=== PATIENT | female | born 1995 | race Caucasian/White ===

== ENCOUNTER 2017-01-10 11:33 | Inpatient (IN) | payer MEDICAID, OTHER ==
[~2017-01-10] VITALS: Ht 160 cm; Wt 87.8 kg
[2017-01-10] MEDS ORDERED: SODIUM CHLORIDE 0.9% 1,000 ML IV ONE (12:07)
[2017-01-10 12:40] LABS: BASOPHILS % 0.6 % (0.0-2.0); DIFFERENTIAL COMMENT 0; EOSINOPHILS % 1.1 % (0.0-5.0); HEMATOCRIT. 38.9 % (36.0-48.0); LYMPHOCYTES % 21.8 % (20.0-50.0); MEAN CORPUSCULAR HEMOGLOBIN 25.8 pg (28.0-32.0); MEAN CORPUSCULAR HGB CONC 33.5 g/dL (31.0-37.0); MEAN CORPUSCULAR VOLUME 76.9 fL (81.0-99.0); MEAN PLATELET VOLUME 8.3 fl (7.4-10.4); NEUTROPHILS % 71.5 % (40.0-76.0); PLATELET 398 x1000/uL (130-400); RED BLOOD CELL COUNT 5.06 mill/uL (4.2-5.4); RED CELL DISTRIBUTION WIDTH 14.2 % (11.6-14.6); WHITE BLOOD COUNT 14.9 x1000/uL (4.5-11.0)
[2017-01-10 12:49] LABS: INR 1.1; PARTIAL THROMBOPLASTIN TIME 26.4 sec (24.0-34.0)
[2017-01-10 12:55] LABS: ANION GAP 11; CALCIUM 9.1 mg/dL (8.5-10.1); CARBON DIOXIDE 25 mEq/L (21-32); CHLORIDE 107 mEq/L (98-107); CREATINE KINASE 96 IU/L (26-192); INDEX HEMOLYSI 1 (1-3); INDEX ICTERIC 1 (1-4); INDEX LIPEMIC 1 (1-3); UREA NITROGEN BLOOD 13 mg/dL (7-21); eGFR > 60 mL/min (>60)
[2017-01-10 13:17] LABS: HCG SCREEN NEGATIVE
[2017-01-10 13:41] LABS: CLARITY URINE CLEAR (CLEAR); COLOR URINE YELLOW (YELLOW); GLUCOSE URINE NEGATIVE (NEGATIVE); KETONES URINE NEGATIVE (NEGATIVE); LEUKOCYTE ESTERASE URINE TRACE (NEGATIVE); NITRITE URINE NEGATIVE (NEGATIVE); OCCULT BLOOD URINE NEGATIVE (NEGATIVE); PH URINE 7.5 (4.5-8.0); PROTEIN URINE NEGATIVE (NEGATIVE); SPECIFIC GRAVITY URINE 1.009 (1.005-1.030); UROBILINOGEN URINE 0.2 E.U./dL (0.2-1.0)
[2017-01-10 14:13] LABS: SQUAMOUS EPITHELIAL CELL URINE 1+ /lpf (RARE/1+)
[2017-01-10 14:17] LABS: RBC URINE 0-2 /hpf (0-2); WBC URINE 0-2 /hpf (0-2)
[2017-01-10 14:18] LABS: BACTERIA URINE TRACE; YEAST URINE 1+
[2017-01-10 21:25] VITALS: BP 129/89
[2017-01-10 22:00] VITALS: BP 129/89
[2017-01-10] MEDS ORDERED: TOPI50TA PO (22:11)
[2017-01-10] MEDS ORDERED: ALPR0.2582 PO (22:11)
[2017-01-10] MEDS: LEVETIRACETAM 500MG TABLET PO SCH (22:48)
[2017-01-10 22:58] LABS: *AMPHETAMINES SCREEN URINE NEGATIVE (NEGATIVE); *BARBITURATES SCREEN URINE NEGATIVE (NEGATIVE); *BENZODIAZEPINES SCREEN URINE NEGATIVE (NEGATIVE); *COCAINE SCREEN URINE NEGATIVE (NEGATIVE); CANNABINOID URINE SCREEN NEGATIVE (NEGATIVE); ECSTASY MDMA SCREEN URINE NEGATIVE (NEGATIVE); METHADONE URINE SCREEN NEGATIVE (NEGATIVE); OPIATES URINE SCREEN NEGATIVE (NEGATIVE); PHENCYCLIDINE URINE SCREEN NEGATIVE (NEGATIVE)
[2017-01-10] MEDS ORDERED: MAGNESIUM/ALUMINUM HYDROXIDE/SIMETHICONE 30ML UDC PO PRN (23:45)
[2017-01-10] MEDS ORDERED: LORAZEPAM 2MG/ML CPJ IV PRN (23:45)
[2017-01-11] VITALS (7 sets, daily range): BP systolic 93–110; BP diastolic 51–68
[2017-01-11] MEDS ORDERED: ALPRAZOLAM 0.25 MG TABLET PO PRN (00:30)
[2017-01-11] MEDS: ACETAMINOPHEN 325MG TABLET PO PRN ×2 (05:28→14:15)
[2017-01-11] MEDS: SODIUM CHLORIDE 0.9% INJ 3ML FLUSH IVF SCH ×3 (05:28→22:09)
[2017-01-11] MEDS: LEVETIRACETAM 500MG TABLET PO SCH ×2 (08:52→20:18)
[2017-01-11] MEDS ORDERED: TOPIRAMATE 25MG TABLET PO SCH (09:00)
[2017-01-11 15:23] LABS: DIFFERENTIAL COMMENT 0; HEMATOCRIT. 38.1 % (36.0-48.0); HEMOGLOBIN. 12.4 g/dL (12.0-16.0); MEAN CORPUSCULAR HEMOGLOBIN 25.4 pg (28.0-32.0); MEAN CORPUSCULAR HGB CONC 32.6 g/dL (31.0-37.0); PLATELET 378 x1000/uL (130-400); RED BLOOD CELL COUNT 4.88 mill/uL (4.2-5.4); RED CELL DISTRIBUTION WIDTH 14.2 % (11.6-14.6); WHITE BLOOD COUNT 15.4 x1000/uL (4.5-11.0)
[2017-01-11 16:13] LABS: PLATELET ESTIMATE NORMAL
[2017-01-11] MEDS ORDERED: HYDROCODONE/ACETAMINOPHEN 5/325MG TABLET PO PRN (19:45)
[2017-01-11] MEDS: HYDROMORPHONE HCL/PF 2MG/ML CPJ IV PRN (23:34)
[2017-01-12 05:00] VITALS: BP 104/74
[2017-01-12] MEDS: ONDANSETRON HCL 4MG/2ML VIAL IV PRN ×3 (06:01→19:31)
[2017-01-12] MEDS: HYDROMORPHONE HCL/PF 2MG/ML CPJ IV PRN ×3 (06:03→19:32)
[2017-01-12] MEDS: SODIUM CHLORIDE 0.9% INJ 3ML FLUSH IVF SCH ×3 (06:14→20:24)
[2017-01-12 08:00] VITALS: BP 93/50
[2017-01-12] MEDS: LEVETIRACETAM 500MG TABLET PO SCH ×2 (08:35→20:23)
[2017-01-12 12:00] VITALS: BP 99/50
[2017-01-12 13:56] LABS: BASOPHILS % 0.4 % (0.0-2.0); DIFFERENTIAL COMMENT 0; EOSINOPHILS % 0.4 % (0.0-5.0); HEMATOCRIT. 38.8 % (36.0-48.0); HEMOGLOBIN. 12.9 g/dL (12.0-16.0); LYMPHOCYTES % 15.8 % (20.0-50.0); MEAN CORPUSCULAR HEMOGLOBIN 25.8 pg (28.0-32.0); MEAN CORPUSCULAR HGB CONC 33.3 g/dL (31.0-37.0); MEAN CORPUSCULAR VOLUME 77.4 fL (81.0-99.0); MEAN PLATELET VOLUME 8.4 fl (7.4-10.4); MONOCYTES % 3.2 % (2.0-8.0); NEUTROPHILS % 80.2 % (40.0-76.0); PLATELET 385 x1000/uL (130-400); RED BLOOD CELL COUNT 5.01 mill/uL (4.2-5.4); RED CELL DISTRIBUTION WIDTH 14.3 % (11.6-14.6)
[2017-01-12 16:00] VITALS: BP 92/57
[2017-01-12 20:00] VITALS: BP 110/67
[2017-01-13] VITALS: BP 96/55
[2017-01-13 04:00] VITALS: BP 93/47
[2017-01-13] MEDS: SODIUM CHLORIDE 0.9% INJ 3ML FLUSH IVF SCH ×3 (05:25→20:10)
[2017-01-13] MEDS: ONDANSETRON HCL 4MG/2ML VIAL IV PRN ×2 (06:24→20:02)
[2017-01-13] MEDS ORDERED: DIAZEPAM 5 MG TABLET PO PRN (07:45)
[2017-01-13 08:00] VITALS: BP 110/75
[2017-01-13] MEDS: LEVETIRACETAM 500MG TABLET PO SCH (08:30)
[2017-01-13] MEDS ORDERED: MORPHINE SULFATE 2 MG/ML CPJ (NOT FOR IM USE) IV PRN (09:45)
[2017-01-13] MEDS ORDERED: SODIUM CHLORIDE 0.9% 1,000 ML IV SCH (10:15)
[2017-01-13 12:00] VITALS: BP 112/69
[2017-01-13] MEDS: OXYCODONE HCL/ACETAMINOPHEN 5/325MG TABLET PO PRN ×2 (13:52→20:10)
[2017-01-13 16:00] VITALS: BP 104/67
[2017-01-13] MEDS: ACETAMINOPHEN 325MG TABLET PO PRN (16:40)
[2017-01-13 17:12] LABS: INR 1.1
[2017-01-13 17:36] LABS: HCG SCREEN NEGATIVE
[2017-01-13 20:00] VITALS: BP 102/73
[2017-01-13] MEDS: LEVETIRACETAM 250MG TABLET PO SCH (20:03)
[2017-01-14] MEDS: ACETAMINOPHEN 325MG TABLET PO PRN ×5 (00:38→23:58)
[2017-01-14 01:00] VITALS: BP 113/75
[2017-01-14] MEDS: OXYCODONE HCL/ACETAMINOPHEN 5/325MG TABLET PO PRN ×4 (02:04→20:59)
[2017-01-14] MEDS: DEXT 5%/0.45% NACL KCL 20MEQ/L 1,000 ML IV SCH ×3 (02:04→23:34)
[2017-01-14 05:00] VITALS: BP 117/67
[2017-01-14] MEDS: SODIUM CHLORIDE 0.9% INJ 3ML FLUSH IVF SCH ×3 (05:08→20:59)
[2017-01-14 05:44] LABS: BASOPHILS % 0.1 % (0.0-2.0); DIFFERENTIAL COMMENT 0; EOSINOPHILS % 0.1 % (0.0-5.0); HEMATOCRIT. 35.8 % (36.0-48.0); HEMOGLOBIN. 11.7 g/dL (12.0-16.0); LYMPHOCYTES % 10.7 % (20.0-50.0); MEAN CORPUSCULAR HEMOGLOBIN 25.2 pg (28.0-32.0); MEAN CORPUSCULAR HGB CONC 32.8 g/dL (31.0-37.0); MEAN PLATELET VOLUME 8.8 fl (7.4-10.4); MONOCYTES % 3.7 % (2.0-8.0); NEUTROPHILS % 85.4 % (40.0-76.0); PLATELET 408 x1000/uL (130-400); RED BLOOD CELL COUNT 4.65 mill/uL (4.2-5.4); RED CELL DISTRIBUTION WIDTH 14.1 % (11.6-14.6); WHITE BLOOD COUNT 20.6 x1000/uL (4.5-11.0)
[2017-01-14 06:58] LABS: ALBUMIN 3.2 g/dL (3.4-5.0); ANION GAP 14; CARBON DIOXIDE 24 mEq/L (21-32); CHLORIDE 104 mEq/L (98-107); CREATINE KINASE 98 IU/L (26-192); INDEX HEMOLYSI 1 (1-3); INDEX ICTERIC 1 (1-4); INDEX LIPEMIC 1 (1-3); eGFR > 60 mL/min (>60)
[2017-01-14 07:01] LABS: THYROID STIMULATING HORMONE 0.61 uIU/mL (0.36-3.74)
[2017-01-14 07:04] LABS: ALANINE AMINOTRANSFERASE 18 IU/L (13-61); BILIRUBIN DIRECT < 0.1 mg/dL (0.0-0.2); CALCIUM 8.5 mg/dL (8.5-10.1); LIPASE 138 IU/L (73-393); PHOSPHORUS 2.6 mg/dL (2.5-4.9); UREA NITROGEN BLOOD 8 mg/dL (7-21)
[2017-01-14] MEDS: ONDANSETRON HCL 4MG/2ML VIAL IV PRN ×3 (07:34→20:54)
[2017-01-14 08:00] VITALS: BP 116/78
[2017-01-14] MEDS: LEVETIRACETAM 250MG TABLET PO SCH ×2 (09:04→20:54)
[2017-01-14] MEDS ORDERED: GADOBENATE DIMEGLUMINE 529 MG/ML 10ML IV ONE (09:59)
[2017-01-14 12:00] VITALS: BP 115/76
[2017-01-14] MEDS: DEXAMETHASONE 4MG/ML 1ML VIAL IV SCH ×3 (12:04→23:29)
[2017-01-14 14:25] LABS: CSF APPEARANCE CLEAR (CLEAR)
[2017-01-14 14:39] LABS: GLUCOSE CSF 70 mg/dL (41-75)
[2017-01-14 14:47] LABS: CSF WHITE BLOOD CELL 0 /cu mm (0-10)
[2017-01-14 16:00] VITALS: BP 117/73
[2017-01-14] MEDS ORDERED: LORAZEPAM 2MG/ML CPJ IV PRN (19:30)
[2017-01-14 20:00] VITALS: BP 134/86
[2017-01-15] VITALS: BP 96/58
[2017-01-15] MEDS: OXYCODONE HCL/ACETAMINOPHEN 5/325MG TABLET PO PRN ×2 (04:01→11:41)
[2017-01-15 04:02] VITALS: BP 119/69
[2017-01-15 04:15] LABS: TOPIRAMATE 6.2 ug/mL (2.0-25.0)
[2017-01-15] MEDS: DEXAMETHASONE 4MG/ML 1ML VIAL IV SCH ×4 (05:43→23:34)
[2017-01-15] MEDS: SODIUM CHLORIDE 0.9% INJ 3ML FLUSH IVF SCH ×3 (05:43→21:51)
[2017-01-15 08:00] VITALS: BP 113/76
[2017-01-15] MEDS: LEVETIRACETAM 250MG TABLET PO SCH ×2 (08:20→20:43)
[2017-01-15] MEDS: ACETAMINOPHEN 325MG TABLET PO PRN (08:26)
[2017-01-15 12:00] VITALS: BP 114/65
[2017-01-15] MEDS ORDERED: NA PHOS,M-B/NA PHOS,DI-BA ENEMA 118ML PR SCH (13:15)
[2017-01-15] MEDS ORDERED: NA PHOS,M-B/NA PHOS,DI-BA ENEMA 118ML PR PRN (13:15)
[2017-01-15 16:00] VITALS: BP 103/75
[2017-01-15] MEDS: DEXT 5%/0.45% NACL KCL 20MEQ/L 1,000 ML IV SCH ×2 (18:14→21:51)
[2017-01-15 20:00] VITALS: BP 95/62
[2017-01-15] MEDS: DIPHENHYDRAMINE 50MG/ML VIAL IV PRN (23:34)
[2017-01-16] VITALS (24 sets, daily range): BP systolic 90–180; BP diastolic 48–96
[2017-01-16] MEDS: DEXT 5%/0.45% NACL KCL 20MEQ/L 1,000 ML IV SCH (04:54)
[2017-01-16] MEDS: DIPHENHYDRAMINE 50MG/ML VIAL IV PRN (04:58)
[2017-01-16] MEDS: SODIUM CHLORIDE 0.9% INJ 3ML FLUSH IVF SCH ×3 (05:07→21:40)
[2017-01-16] MEDS: DEXAMETHASONE 4MG/ML 1ML VIAL IV SCH ×3 (05:34→23:57)
[2017-01-16] MEDS ORDERED: NORMAL SALINE 0.9% 10 ML SYR ONE (06:17)
[2017-01-16] MEDS ORDERED: THROMBIN (BOVINE) 5000 UNITS/VIAL TOP ONE (06:17)
[2017-01-16] MEDS ORDERED: BACITRACIN 50,000 UNITS/VIAL ONE (06:17)
[2017-01-16] MEDS ORDERED: LIDOCAINE HCL/EPINEPHRINE 0.5%-EPI 1:200,000 50 ML VIAL INFIL ONE (06:17)
[2017-01-16] MEDS ORDERED: GELATIN SPONGE,ABSORBABLE SZ 100 ONE ×2 (06:17→06:18)
[2017-01-16] MEDS ORDERED: POVIDONE-IODINE OINT 28.4GM TOP ONE (06:32)
[2017-01-16] MEDS: MORPHINE SULFATE 2 MG/ML CPJ (NOT FOR IM USE) IV PRN (07:08)
[2017-01-16] MEDS ORDERED: LEVETIRACETAM 750 MG in SODIUM CHLORIDE 0.9% 100 ML IV SCH (09:00)
[2017-01-16] MEDS ORDERED: FENTANYL CITRATE/PF 50MCG/ML 5ML VIAL ONE (11:52)
[2017-01-16] MEDS ORDERED: MIDAZOLAM HCL 2 MG/2 ML VIAL ONE (11:52)
[2017-01-16] MEDS ORDERED: HYDROMORPHONE HCL/PF 2MG/ML (OR) ONE (11:52)
[2017-01-16] MEDS ORDERED: PHENYTOIN SODIUM 250MG/5ML VIAL IV ONE (12:22)
[2017-01-16] MEDS ORDERED: MANNITOL 20% 0 ML IV ONE (12:22)
[2017-01-16] MEDS ORDERED: PHENYTOIN SODIUM 100MG/2ML VIAL IV SCH (14:00)
[2017-01-16] MEDS: CEFAZOLIN 1000MG PREMIX 50 ML IV SCH ×2 (14:00→21:31)
[2017-01-16] MEDS ORDERED: CEFAZOLIN SODIUM 1000MG/VIAL IV SCH (14:00)
[2017-01-16] MEDS ORDERED: MEPERIDINE HCL/PF 100MG/ML CPJ ONE (16:10)
[2017-01-16] MEDS ORDERED: LABETALOL HCL 5MG/ML VIAL 20ML IV ONE (16:46)
[2017-01-16] MEDS ORDERED: GLYCOPYRROLATE 0.2 MG/ML 2ML VIAL ONE (16:46)
[2017-01-16] MEDS: DEXT 5%/LACTATED RINGERS 1,000 ML IV SCH (17:00)
[2017-01-16] MEDS: PHENYTOIN SODIUM 100MG/2ML VIAL IV SCH (21:40)
[2017-01-16] MEDS ORDERED: BISACODYL 10MG SUPP PR NR (22:15)
[2017-01-16] MEDS: LEVETIRACETAM 750 MG in SODIUM CHLORIDE 0.9% 100 ML IV SCH (22:23)
[2017-01-17] VITALS (45 sets, daily range): BP systolic 87–167; BP diastolic 55–137
[2017-01-17] MEDS: MORPHINE SULFATE 2 MG/ML CPJ (NOT FOR IM USE) IV PRN ×5 (03:50→22:52)
[2017-01-17] MEDS: DEXAMETHASONE 4MG/ML 1ML VIAL IV SCH ×2 (06:25→12:31)
[2017-01-17] MEDS: DEXT 5%/LACTATED RINGERS 1,000 ML IV SCH (06:25)
[2017-01-17] MEDS: CEFAZOLIN 1000MG PREMIX 50 ML IV SCH ×3 (06:25→22:26)
[2017-01-17] MEDS: PHENYTOIN SODIUM 100MG/2ML VIAL IV SCH ×3 (06:25→22:26)
[2017-01-17] MEDS: SODIUM CHLORIDE 0.9% INJ 3ML FLUSH IVF SCH ×3 (06:26→22:26)
[2017-01-17] MEDS: LEVETIRACETAM 750 MG in SODIUM CHLORIDE 0.9% 100 ML IV SCH ×2 (09:11→20:39)
[2017-01-18] VITALS (19 sets, daily range): BP systolic 102–155; BP diastolic 56–86
[2017-01-18] MEDS: MORPHINE SULFATE 2 MG/ML CPJ (NOT FOR IM USE) IV PRN ×2 (01:27→09:05)
[2017-01-18 05:22] LABS: DIFFERENTIAL COMMENT 0; HEMATOCRIT. 35.1 % (36.0-48.0); HEMOGLOBIN. 11.7 g/dL (12.0-16.0); LYMPHOCYTES % 13.1 % (20.0-50.0); MEAN CORPUSCULAR HEMOGLOBIN 25.9 pg (28.0-32.0); MEAN CORPUSCULAR HGB CONC 33.3 g/dL (31.0-37.0); MEAN CORPUSCULAR VOLUME 77.8 fL (81.0-99.0); MEAN PLATELET VOLUME 8.5 fl (7.4-10.4); MONOCYTES % 9.1 % (2.0-8.0); NEUTROPHILS % 77.8 % (40.0-76.0); PLATELET 377 x1000/uL (130-400); RED BLOOD CELL COUNT 4.51 mill/uL (4.2-5.4); RED CELL DISTRIBUTION WIDTH 14.3 % (11.6-14.6); WHITE BLOOD COUNT 19.1 x1000/uL (4.5-11.0)
[2017-01-18] MEDS: CEFAZOLIN 1000MG PREMIX 50 ML IV SCH (06:29)
[2017-01-18] MEDS: PHENYTOIN SODIUM 100MG/2ML VIAL IV SCH ×2 (06:29→13:42)
[2017-01-18] MEDS: SODIUM CHLORIDE 0.9% INJ 3ML FLUSH IVF SCH ×3 (06:30→21:28)
[2017-01-18 06:33] LABS: ANION GAP 12; CALCIUM 8.3 mg/dL (8.5-10.1); CARBON DIOXIDE 31 mEq/L (21-32); CHLORIDE 101 mEq/L (98-107); INDEX HEMOLYSI 1 (1-3); INDEX ICTERIC 1 (1-4); INDEX LIPEMIC 1 (1-3); UREA NITROGEN BLOOD 13 mg/dL (7-21); eGFR > 60 mL/min (>60)
[2017-01-18] MEDS: LEVETIRACETAM 750 MG in SODIUM CHLORIDE 0.9% 100 ML IV SCH (09:00)
[2017-01-18] MEDS ORDERED: MAGNESIUM HYDROXIDE 400MG/5ML 30ML UDC PO PRN (13:45)
[2017-01-18] MEDS: DOCUSATE SODIUM 250MG CAPSULE PO SCH (16:10)
[2017-01-18] MEDS: PHENYTOIN SODIUM EXTENDED 100MG CAPSULE PO SCH ×2 (16:12→21:54)
[2017-01-18] MEDS ORDERED: PNEUMOCOCCAL 23-VAL P-SAC VAC 0.5 ML IM ONE (18:00)
[2017-01-18] MEDS: HYDROCODONE/ACETAMINOPHEN 5/325MG TABLET PO PRN (19:47)
[2017-01-18] MEDS: LEVETIRACETAM 500MG/5ML CUP PO SCH (21:28)
[2017-01-18] MEDS: DIPHENHYDRAMINE 50MG/ML VIAL IV PRN (21:54)
[2017-01-19] MEDS: HYDROCODONE/ACETAMINOPHEN 5/325MG TABLET PO PRN ×4 (00:47→20:36)
[2017-01-19 01:20] VITALS: BP 109/66
[2017-01-19 04:00] VITALS: BP 101/62
[2017-01-19] MEDS: PHENYTOIN SODIUM EXTENDED 100MG CAPSULE PO SCH ×3 (06:59→21:45)
[2017-01-19] MEDS: SODIUM CHLORIDE 0.9% INJ 3ML FLUSH IVF SCH ×3 (06:59→21:45)
[2017-01-19 08:00] VITALS: BP 100/67
[2017-01-19] MEDS: LEVETIRACETAM 500MG/5ML CUP PO SCH ×2 (08:48→21:45)
[2017-01-19] MEDS: DOCUSATE SODIUM 250MG CAPSULE PO SCH (08:48)
[2017-01-19 12:00] VITALS: BP 101/70
[2017-01-19] MEDS ORDERED: VANCOMYCIN 1,500 MG in DEXT 5% WATER 250 ML IV SCH (15:00)
[2017-01-19] MEDS: CEFAZOLIN 1000MG PREMIX 50 ML IV SCH ×2 (15:33→21:44)
[2017-01-19 16:00] VITALS: BP 108/73
[2017-01-19 20:00] VITALS: BP 106/73
[2017-01-19] MEDS: VANCOMYCIN 1 G PREMIX 200 ML IV SCH (23:47)
[2017-01-20] VITALS: BP 109/72
[2017-01-20 04:00] VITALS: BP 117/76
[2017-01-20] MEDS: CEFAZOLIN 1000MG PREMIX 50 ML IV SCH ×3 (05:01→20:18)
[2017-01-20] MEDS: HYDROCODONE/ACETAMINOPHEN 5/325MG TABLET PO PRN ×3 (05:38→22:53)
[2017-01-20] MEDS: SODIUM CHLORIDE 0.9% INJ 3ML FLUSH IVF SCH ×3 (05:40→21:26)
[2017-01-20] MEDS: PHENYTOIN SODIUM EXTENDED 100MG CAPSULE PO SCH ×3 (05:43→21:25)
[2017-01-20] MEDS: VANCOMYCIN 1 G PREMIX 200 ML IV SCH ×3 (07:00→22:56)
[2017-01-20 08:00] VITALS: BP 96/61
[2017-01-20] MEDS: DOCUSATE SODIUM 250MG CAPSULE PO SCH (08:53)
[2017-01-20] MEDS: LEVETIRACETAM 500MG/5ML CUP PO SCH ×2 (08:53→20:18)
[2017-01-20] MEDS: ENOXAPARIN 100MG/ML SYR SUBCUT SCH ×2 (10:46→20:19)
[2017-01-20 12:00] VITALS: BP 106/73
[2017-01-20 15:00] VITALS: BP 108/66
[2017-01-20 20:00] VITALS: BP 101/63
[2017-01-21] VITALS: BP 112/64
[2017-01-21] MEDS: CEFAZOLIN 1000MG PREMIX 50 ML IV SCH ×2 (03:37→12:10)
[2017-01-21 04:00] VITALS: BP 112/67
[2017-01-21] MEDS: SODIUM CHLORIDE 0.9% INJ 3ML FLUSH IVF SCH ×3 (05:30→20:58)
[2017-01-21] MEDS: PHENYTOIN SODIUM EXTENDED 100MG CAPSULE PO SCH ×3 (05:30→20:59)
[2017-01-21 06:10] LABS: BASOPHILS % 0.2 % (0.0-2.0); DIFFERENTIAL COMMENT 0; EOSINOPHILS % 5.5 % (0.0-5.0); HEMATOCRIT. 33.3 % (36.0-48.0); HEMOGLOBIN. 10.8 g/dL (12.0-16.0); LYMPHOCYTES % 30.5 % (20.0-50.0); MEAN CORPUSCULAR HEMOGLOBIN 25.5 pg (28.0-32.0); MEAN CORPUSCULAR HGB CONC 32.3 g/dL (31.0-37.0); MEAN CORPUSCULAR VOLUME 78.9 fL (81.0-99.0); MEAN PLATELET VOLUME 7.9 fl (7.4-10.4); MONOCYTES % 4.4 % (2.0-8.0); NEUTROPHILS % 59.4 % (40.0-76.0); PLATELET 338 x1000/uL (130-400); RED BLOOD CELL COUNT 4.23 mill/uL (4.2-5.4); WHITE BLOOD COUNT 18.7 x1000/uL (4.5-11.0)
[2017-01-21 06:39] LABS: CALCIUM 8.2 mg/dL (8.5-10.1); CHLORIDE 105 mEq/L (98-107); INDEX HEMOLYSI 1 (1-3); INDEX ICTERIC 1 (1-4); INDEX LIPEMIC 1 (1-3)
[2017-01-21 06:48] LABS: ANION GAP 15; CARBON DIOXIDE 25 mEq/L (21-32); UREA NITROGEN BLOOD 8 mg/dL (7-21); VANCOMYCIN TROUGH 8.9 ug/mL (5.0-10.0); eGFR > 60 mL/min (>60)
[2017-01-21] MEDS: VANCOMYCIN 1 G PREMIX 200 ML IV SCH (07:00)
[2017-01-21 08:00] VITALS: BP 118/67
[2017-01-21] MEDS: LEVETIRACETAM 500MG/5ML CUP PO SCH ×2 (08:53→20:57)
[2017-01-21] MEDS: DOCUSATE SODIUM 250MG CAPSULE PO SCH (08:53)
[2017-01-21] MEDS: ENOXAPARIN 100MG/ML SYR SUBCUT SCH ×2 (09:01→20:58)
[2017-01-21 12:00] VITALS: BP 125/70
[2017-01-21 16:00] VITALS: BP 120/73
[2017-01-21 20:00] VITALS: BP 119/75
[2017-01-22] VITALS: BP 120/70
[2017-01-22 04:00] VITALS: BP 114/76
[2017-01-22] MEDS: PHENYTOIN SODIUM EXTENDED 100MG CAPSULE PO SCH ×3 (05:24→22:33)
[2017-01-22] MEDS: SODIUM CHLORIDE 0.9% INJ 3ML FLUSH IVF SCH ×3 (05:24→22:00)
[2017-01-22] MEDS: HYDROCODONE/ACETAMINOPHEN 5/325MG TABLET PO PRN (05:33)
[2017-01-22 06:07] LABS: WEST NILE VIRUS CSF IGG Negative (Negative)
[2017-01-22] MEDS: LEVETIRACETAM 500MG/5ML CUP PO SCH ×2 (08:52→22:33)
[2017-01-22] MEDS: DOCUSATE SODIUM 250MG CAPSULE PO SCH (08:52)
[2017-01-22] MEDS: ENOXAPARIN 100MG/ML SYR SUBCUT SCH ×2 (08:52→21:00)
[2017-01-22 09:03] LABS: WEST NILE VIRUS CSF IGM Negative (Negative)
[2017-01-22] MEDS: RIFAMPIN 300MG CAPSULE PO SCH (16:54)
[2017-01-22] MEDS: VANCOMYCIN 1 G PREMIX 200 ML IV SCH (17:35)
[2017-01-22 20:00] VITALS: BP 131/83
[2017-01-23] VITALS: BP 120/77
[2017-01-23 04:00] VITALS: BP 113/71
[2017-01-23 05:59] LABS: TOXOPLASMA AB IGG <3.0 IU/mL (.)
[2017-01-23] MEDS: SODIUM CHLORIDE 0.9% INJ 3ML FLUSH IVF SCH ×4 (06:00→23:01)
[2017-01-23] MEDS: PHENYTOIN SODIUM EXTENDED 100MG CAPSULE PO SCH ×3 (06:04→22:33)
[2017-01-23 08:00] VITALS: BP 105/79
[2017-01-23] MEDS: ENOXAPARIN 100MG/ML SYR SUBCUT SCH ×2 (08:00→22:35)
[2017-01-23] MEDS: RIFAMPIN 300MG CAPSULE PO SCH (08:09)
[2017-01-23] MEDS: DOCUSATE SODIUM 250MG CAPSULE PO SCH (08:10)
[2017-01-23] MEDS: LEVETIRACETAM 500MG/5ML CUP PO SCH ×2 (08:10→22:34)
[2017-01-23 12:00] VITALS: BP 95/59
[2017-01-23] MEDS: DIPHENHYDRAMINE 50MG/ML VIAL IV PRN (13:18)
[2017-01-23 16:00] VITALS: BP 137/83
[2017-01-23] MEDS ORDERED: VANCOMYCIN 1500MG in DEXTROSE 5% WATER 250ML IV SCH (16:00)
[2017-01-23 20:00] VITALS: BP 133/84
[2017-01-23] MEDS: VANCOMYCIN 1 G PREMIX 200 ML IV SCH ×2 (23:01)
[2017-01-24] VITALS: BP 129/75
[2017-01-24 04:00] VITALS: BP 108/79
[2017-01-24] MEDS: SODIUM CHLORIDE 0.9% INJ 3ML FLUSH IVF SCH ×3 (07:02→20:25)
[2017-01-24] MEDS: VANCOMYCIN 1 G PREMIX 200 ML IV SCH (07:02)
[2017-01-24] MEDS: PHENYTOIN SODIUM EXTENDED 100MG CAPSULE PO SCH ×2 (07:08→16:09)
[2017-01-24 08:32] LABS: BASOPHILS % 0.3 % (0.0-2.0); DIFFERENTIAL COMMENT 0; EOSINOPHILS % 5.7 % (0.0-5.0); HEMATOCRIT. 34.6 % (36.0-48.0); HEMOGLOBIN. 11.2 g/dL (12.0-16.0); LYMPHOCYTES % 19.2 % (20.0-50.0); MEAN CORPUSCULAR HEMOGLOBIN 25.5 pg (28.0-32.0); MEAN CORPUSCULAR HGB CONC 32.4 g/dL (31.0-37.0); MEAN CORPUSCULAR VOLUME 78.7 fL (81.0-99.0); MEAN PLATELET VOLUME 7.7 fl (7.4-10.4); MONOCYTES % 5.8 % (2.0-8.0); PLATELET 359 x1000/uL (130-400); RED CELL DISTRIBUTION WIDTH 14.6 % (11.6-14.6); WHITE BLOOD COUNT 16.5 x1000/uL (4.5-11.0)
[2017-01-24] MEDS: DOCUSATE SODIUM 250MG CAPSULE PO SCH (08:44)
[2017-01-24] MEDS: RIFAMPIN 300MG CAPSULE PO SCH (08:44)
[2017-01-24] MEDS: LEVETIRACETAM 500MG/5ML CUP PO SCH ×2 (08:44→20:24)
[2017-01-24] MEDS: ENOXAPARIN 100MG/ML SYR SUBCUT SCH (08:45)
[2017-01-24 08:57] LABS: ANION GAP 14; CALCIUM 8.9 mg/dL (8.5-10.1); CARBON DIOXIDE 28 mEq/L (21-32); CHLORIDE 103 mEq/L (98-107); INDEX HEMOLYSI 1 (1-3); INDEX ICTERIC 1 (1-4); INDEX LIPEMIC 1 (1-3); UREA NITROGEN BLOOD 6 mg/dL (7-21); eGFR > 60 mL/min (>60)
[2017-01-24] MEDS ORDERED: RIVAROXABAN 20 MG TABLET PO SCH (17:00)
[2017-01-24] MEDS ORDERED: VANCOMYCIN 1500MG in DEXTROSE 5% WATER 250ML IV SCH (18:00)
[2017-01-24 20:29] VITALS: BP 132/76
== END 2017-01-24 21:48 | disposition home or self-care (01) | DRG 711 ==
LOC: ER 11:56 → 5WST 13:42 → MICUSO 01-16 14:41 → 6EST 01-19 01:05
PROVIDERS: ADMIT Internal Medicine; ATTEND Internal Medicine
PROC: 00163J6 Bypass Cerebral Ventricle to Peritoneal Cavity with Synthetic Substitute, Percutaneous Approach (ICD-10-PCS; 2017-01-16)
PROC: 00P63JZ Removal of Synthetic Substitute from Cerebral Ventricle, Percutaneous Approach (ICD-10-PCS; principal; 2017-01-16 12:00)
PROC: 05H933Z Insertion of Infusion Device into Right Brachial Vein, Percutaneous Approach (ICD-10-PCS; 2017-01-17)
PROC: B54MZZA Ultrasonography of Right Upper Extremity Veins, Guidance (ICD-10-PCS; 2017-01-17)
PROC: 02HV33Z Insertion of Infusion Device into Superior Vena Cava, Percutaneous Approach (ICD-10-PCS; 2017-01-23)
PROC: B5181ZA Fluoroscopy of Superior Vena Cava using Low Osmolar Contrast, Guidance (ICD-10-PCS; 2017-01-23)
PROC: 02HV33Z Insertion of Infusion Device into Superior Vena Cava, Percutaneous Approach (ICD-10-PCS; 2017-01-23)
PROC: B548ZZA Ultrasonography of Superior Vena Cava, Guidance (ICD-10-PCS; 2017-01-23)
DX: T85.730A Infection and inflammatory reaction due to ventricular intracranial (communicating) shunt, initial encounter (principal); A41.1 Sepsis due to other specified staphylococcus; G93.41 Metabolic encephalopathy; G91.9 Hydrocephalus, unspecified; T85.01XA Breakdown (mechanical) of ventricular intracranial (communicating) shunt, initial encounter; M48.02 Spinal stenosis, cervical region; I80.8 Phlebitis and thrombophlebitis of other sites; M47.812 Spondylosis without myelopathy or radiculopathy, cervical region; F41.9 Anxiety disorder, unspecified; G89.29 Other chronic pain; G40.909 Epilepsy, unspecified, not intractable, without status epilepticus; I82.619 Acute embolism and thrombosis of superficial veins of unspecified upper extremity; Y83.8 Other surgical procedures as the cause of abnormal reaction of the patient, or of later complication, without mention of misadventure at the time of the procedure; Z98.2 Presence of cerebrospinal fluid drainage device; Y92.89 Other specified places as the place of occurrence of the external cause
CPT/HCPCS: 36415; 36569; 62270; 70250; 70450; 70551; 71010; 72040; 72141; 72156; 74000; 76937; 77001; 77003; 80048; 80076; 80201; 80202; 80305; 81001; 82550; 82945; 82962; 83690; 84100; 84157; 84443; 84703; 85007; 85025; 85027; 85610; 85651; 85730; 86635; 86777; 86778; 86788; 86789; 86850; 86870; 86900; 87040; 87070; 87075; 87186; 87205; 87802; 87899; 89050; 90732; 93005; 93970; 96360; 97116; 97163; 97166; 97530; 97535; 99285; A4216; A9577; C1725; G0482; J0690; J1100; J1165; J1170; J1200; J1650; J1953; J2060; J2175; J2250; J2270; J2405; J3010; J3370; J3490; J7030; J7050; J7060; J7121

== ENCOUNTER 2017-02-02 10:37 | Emergency (ER) | payer OTHER ==
[~2017-02-02] VITALS: Ht 210.8 cm; Wt 82.0 kg
[~2017-02-02 10:37] MED LIST: ALPR0.2582 PO; TOPI50TA PO
[2017-02-02] MEDS ORDERED: KEPP500 PO (10:43)
[2017-02-02] MEDS ORDERED: PHEN50TA PO (10:43)
[2017-02-02] MEDS ORDERED: VANC750P5 IV (10:43)
[2017-02-02] MEDS ORDERED: HYDROCODONE/ACETAMINOPHEN 5/325MG TABLET PO ONE (11:00)
[2017-02-02 13:05] VITALS: BP 160/79
== END 2017-02-02 13:07 | disposition home or self-care (01) ==
LOC: ER 12:10
DX: S16.1XXA Strain of muscle, fascia and tendon at neck level, initial encounter (principal); Z88.6 Allergy status to analgesic agent; Y93.89 Activity, other specified; Y99.9 Unspecified external cause status; Y92.89 Other specified places as the place of occurrence of the external cause
CPT/HCPCS: 70360; 99284

== ENCOUNTER 2017-02-09 19:30 | Emergency (ER) | payer OTHER ==
[~2017-02-09] VITALS: Ht 160 cm; Wt 83.7 kg
[~2017-02-09 19:30] MED LIST changes: +KEPP500 PO; +PHEN50TA PO; +VANC750P5 IV
[2017-02-09 22:57] LABS: HEMATOCRIT. 35.8 % (36.0-48.0); HEMOGLOBIN. 11.8 g/dL (12.0-16.0); MEAN CORPUSCULAR HEMOGLOBIN 25.7 pg (28.0-32.0); MEAN CORPUSCULAR HGB CONC 33.1 g/dL (31.0-37.0); MEAN CORPUSCULAR VOLUME 77.5 fL (81.0-99.0); MEAN PLATELET VOLUME 7.9 fl (7.4-10.4); PLATELET 365 x1000/uL (130-400); RED BLOOD CELL COUNT 4.62 mill/uL (4.2-5.4); RED CELL DISTRIBUTION WIDTH 14.8 % (11.6-14.6); WHITE BLOOD COUNT 8.1 x1000/uL (4.5-11.0)
[2017-02-09] MEDS: DIPHENHYDRAMINE 50MG CAPSULE PO ONE (22:59)
[2017-02-09] MEDS: IBUPROFEN 800MG TABLET PO ONE (22:59)
[2017-02-09 23:02] LABS: CHLORIDE 103 mEq/L (98-107)
[2017-02-09 23:03] LABS: INDEX HEMOLYSI 2 (1-3); INDEX ICTERIC 1 (1-4); INDEX LIPEMIC 1 (1-3)
[2017-02-09 23:04] LABS: PROTHROMBIN TIME 10.4 sec
[2017-02-09 23:06] LABS: ALBUMIN 3.4 g/dL (3.4-5.0); ANION GAP 13; CARBON DIOXIDE 28 mEq/L (21-32); UREA NITROGEN BLOOD 7 mg/dL (7-21)
[2017-02-09 23:07] VITALS: BP 164/98
[2017-02-09 23:09] LABS: ALANINE AMINOTRANSFERASE 70 IU/L (13-61); eGFR > 60 mL/min (>60)
[2017-02-09 23:11] LABS: DIFFERENTIAL COMMENT 1
[2017-02-09 23:13] LABS: PHENYTOIN 1.7 ug/mL (10-20); VALPROIC ACID < 3.0 ug/mL (50-100)
[2017-02-09 23:21] LABS: CARBAMAZEPINE < 0.5 ug/mL (4-12); PHENOBARBITAL < 2.1 ug/mL (15.0-40.0)
[2017-02-10 01:30] LABS: PLATELET ESTIMATE NORMAL
== END 2017-02-10 00:10 | disposition home or self-care (01) ==
LOC: ER 19:31
DX: L30.9 Dermatitis, unspecified (principal); Z98.2 Presence of cerebrospinal fluid drainage device; R56.9 Unspecified convulsions; Z88.6 Allergy status to analgesic agent
CPT/HCPCS: 36415; 80053; 80156; 80165; 80184; 80185; 84443; 85025; 85610; 99284; Q0163

== ENCOUNTER 2017-06-27 16:54 | Inpatient (IN) | payer OTHER ==
[~2017-06-27] VITALS: Ht 157.5 cm; Wt 81.6 kg
[~2017-06-27 16:54] MED LIST changes: +ALPR0.25 PO; -ALPR0.2582 PO
[2017-06-27 18:27] LABS: CLARITY URINE CLOUDY (CLEAR); COLOR URINE YELLOW (YELLOW); GLUCOSE URINE NEGATIVE (NEGATIVE); KETONES URINE NEGATIVE (NEGATIVE); LEUKOCYTE ESTERASE URINE 1+ (NEGATIVE); NITRITE URINE NEGATIVE (NEGATIVE); OCCULT BLOOD URINE NEGATIVE (NEGATIVE); PROTEIN URINE NEGATIVE (NEGATIVE); SPECIFIC GRAVITY URINE 1.016 (1.005-1.030); UROBILINOGEN URINE 0.2 E.U./dL (0.2-1.0)
[2017-06-27 18:38] LABS: *AMPHETAMINES SCREEN URINE NEGATIVE (NEGATIVE); *BARBITURATES SCREEN URINE NEGATIVE (NEGATIVE); *BENZODIAZEPINES SCREEN URINE NEGATIVE (NEGATIVE); *COCAINE SCREEN URINE NEGATIVE (NEGATIVE); METHADONE URINE SCREEN NEGATIVE (NEGATIVE); OPIATES URINE SCREEN NEGATIVE (NEGATIVE); PHENCYCLIDINE URINE SCREEN NEGATIVE (NEGATIVE)
[2017-06-27 18:39] LABS: CANNABINOID URINE SCREEN PRESUMTIVE POSITIVE (NEGATIVE)
[2017-06-27 18:43] LABS: CHLORIDE 101 mEq/L (98-107)
[2017-06-27 18:45] LABS: BASOPHILS % 0.4 % (0.0-2.0); EOSINOPHILS % 2.1 % (0.0-5.0); HEMOGLOBIN. 12.1 g/dL (12.0-16.0); MEAN CORPUSCULAR VOLUME 73.7 fL (81.0-99.0); MEAN PLATELET VOLUME 8.3 fl (7.4-10.4); MONOCYTES % 4.1 % (2.0-8.0); NEUTROPHILS % 72.4 % (40.0-76.0); PLATELET 390 x1000/uL (130-400); RED BLOOD CELL COUNT 5.02 mill/uL (4.2-5.4); RED CELL DISTRIBUTION WIDTH 16.4 % (11.6-14.6)
[2017-06-27 18:47] LABS: HCG SCREEN NEGATIVE
[2017-06-27 18:53] LABS: CARBON DIOXIDE 30 mEq/L (21-32); ETHANOL BLOOD < 10 mg/dL
[2017-06-27 22:00] VITALS: BP 106/62
[2017-06-27] MEDS ORDERED: DIPHENHYDRAMINE 50MG/ML VIAL IV PRN (23:30)
[2017-06-27] MEDS ORDERED: MAGNESIUM/ALUMINUM HYDROXIDE/SIMETHICONE 30ML UDC PO PRN (23:30)
[2017-06-27] MEDS ORDERED: ONDANSETRON HCL 4MG/2ML VIAL IV PRN (23:30)
[2017-06-27] MEDS ORDERED: ACETAMINOPHEN 325MG TABLET PO PRN (23:30)
[2017-06-27] MEDS ORDERED: LORAZEPAM 2MG/ML CPJ IV PRN (23:30)
[2017-06-28] VITALS: BP 99/58
[2017-06-28] MEDS: NITROFURANTOIN 100MG M/M CAPSULE PO SCH ×3 (01:38→22:01)
[2017-06-28 04:00] VITALS: BP 111/72
[2017-06-28] MEDS: SODIUM CHLORIDE 0.9% INJ 3ML FLUSH IVF SCH ×3 (06:05→22:01)
[2017-06-28 08:00] VITALS: BP 107/56
[2017-06-28] MEDS ORDERED: TOPIRAMATE 25MG TABLET PO SCH (09:00)
[2017-06-28] MEDS ORDERED: LEVETIRACETAM 500MG/5ML CUP PO SCH (09:00)
[2017-06-28 12:00] VITALS: BP 108/54
[2017-06-28] MEDS ORDERED: GADOBENATE DIMEGLUMINE 529 MG/ML 10ML IV ONE ×2 (12:41→21:17)
[2017-06-28 16:00] VITALS: BP 114/72
[2017-06-28 16:39] LABS: BASOPHILS % 0.5 % (0.0-2.0); EOSINOPHILS % 2.4 % (0.0-5.0); HEMATOCRIT. 36.2 % (36.0-48.0); LYMPHOCYTES % 21.2 % (20.0-50.0); MEAN CORPUSCULAR HEMOGLOBIN 24.4 pg (28.0-32.0); MEAN CORPUSCULAR VOLUME 73.4 fL (81.0-99.0); MEAN PLATELET VOLUME 8.6 fl (7.4-10.4); MONOCYTES % 4.9 % (2.0-8.0); PLATELET 399 x1000/uL (130-400); RED BLOOD CELL COUNT 4.93 mill/uL (4.2-5.4); RED CELL DISTRIBUTION WIDTH 16.3 % (11.6-14.6)
[2017-06-28 20:00] VITALS: BP 106/58
[2017-06-28] MEDS: LEVETIRACETAM 250MG TABLET PO SCH (22:00)
[2017-06-29] VITALS: BP 97/55
[2017-06-29 04:00] VITALS: BP 98/62
[2017-06-29] MEDS: SODIUM CHLORIDE 0.9% INJ 3ML FLUSH IVF SCH (05:31)
[2017-06-29 08:00] VITALS: BP 109/63
[2017-06-29] MEDS: NITROFURANTOIN 100MG M/M CAPSULE PO SCH (09:49)
[2017-06-29] MEDS: LEVETIRACETAM 250MG TABLET PO SCH (09:49)
[2017-06-29 12:00] VITALS: BP 120/60
[2017-06-29 16:00] VITALS: BP 111/61
[2017-06-29 17:53] VITALS: BP 120/60
== END 2017-06-29 18:06 | disposition home or self-care (01) | DRG 463 ==
LOC: ER 17:05 → 6EST 19:54 → ENRESERV 20:29
PROVIDERS: ADMIT Internal Medicine; ATTEND Internal Medicine
DX: N39.0 Urinary tract infection, site not specified (principal); G93.41 Metabolic encephalopathy; G40.909 Epilepsy, unspecified, not intractable, without status epilepticus; H53.8 Other visual disturbances; H93.19 Tinnitus, unspecified ear; R51 Headache; Z88.6 Allergy status to analgesic agent; Z79.899 Other long term (current) drug therapy; Z82.49 Family history of ischemic heart disease and other diseases of the circulatory system; Z98.2 Presence of cerebrospinal fluid drainage device; Z88.8 Allergy status to other drugs, medicaments and biological substances
CPT/HCPCS: 36415; 70450; 70544; 70553; 80053; 80305; 80329; 81001; 84703; 85025; 87086; 93005; 97162; 97165; 99285; A9577; G0482

== ENCOUNTER 2017-12-26 15:42 | Emergency (ER) | payer OTHER ==
[~2017-12-26] VITALS: Ht 160 cm; Wt 76.0 kg
[~2017-12-26 15:42] MED LIST changes: -VANC750P5 IV; +VANC750P9 IV
[2017-12-26] MEDS ORDERED: LEVETIRACETAM 1000MG/100ML 100 ML IV ONE (16:15)
[2017-12-26 16:21] LABS: BASOPHILS % 0.6 % (0.0-2.0); HEMATOCRIT. 39.2 % (36.0-48.0); HEMOGLOBIN. 13.3 g/dL (12.0-16.0); LYMPHOCYTES % 20.1 % (20.0-50.0); MEAN CORPUSCULAR VOLUME 76.7 fL (81.0-99.0); MEAN PLATELET VOLUME 8.2 fl (7.4-10.4); MONOCYTES % 3.6 % (2.0-8.0); NEUTROPHILS % 74.7 % (40.0-76.0); PLATELET 439 x1000/uL (130-400); RED BLOOD CELL COUNT 5.11 mill/uL (4.2-5.4); RED CELL DISTRIBUTION WIDTH 14.7 % (11.6-14.6)
[2017-12-26 16:27] LABS: CHLORIDE 102 mEq/L (98-107)
[2017-12-26 16:28] LABS: PROTHROMBIN TIME 10.7 sec (9.4-11.6)
[2017-12-26 16:32] LABS: ETHANOL BLOOD < 10 mg/dL
[2017-12-26 17:15] LABS: CLARITY URINE CLEAR (CLEAR); COLOR URINE YELLOW (YELLOW); KETONES URINE NEGATIVE (NEGATIVE); LEUKOCYTE ESTERASE URINE TRACE (NEGATIVE); NITRITE URINE NEGATIVE (NEGATIVE); OCCULT BLOOD URINE 1+ (NEGATIVE); PH URINE 7.5 (4.5-8.0); PROTEIN URINE NEGATIVE (NEGATIVE); SPECIFIC GRAVITY URINE 1.009 (1.005-1.030); UROBILINOGEN URINE 0.2 E.U./dL (0.2-1.0)
[2017-12-26 17:53] LABS: *AMPHETAMINES SCREEN URINE NEGATIVE (NEGATIVE); *BARBITURATES SCREEN URINE NEGATIVE (NEGATIVE); *BENZODIAZEPINES SCREEN URINE NEGATIVE (NEGATIVE); PHENCYCLIDINE URINE SCREEN NEGATIVE (NEGATIVE)
[2017-12-26 17:55] LABS: *COCAINE SCREEN URINE NEGATIVE (NEGATIVE); METHADONE URINE SCREEN NEGATIVE (NEGATIVE); OPIATES URINE SCREEN NEGATIVE (NEGATIVE)
[2017-12-26 18:04] LABS: CANNABINOID URINE SCREEN PRESUMTIVE POSITIVE (NEGATIVE)
[2017-12-26 18:05] VITALS: BP 103/60
== END 2017-12-26 18:53 | disposition home or self-care (01) ==
LOC: ER 15:42
DX: R56.9 Unspecified convulsions (principal); F12.10 Cannabis abuse, uncomplicated; Z88.6 Allergy status to analgesic agent; Z88.8 Allergy status to other drugs, medicaments and biological substances; Z98.2 Presence of cerebrospinal fluid drainage device
CPT/HCPCS: 36415; 80053; 80305; 81003; 81025; 85025; 85610; 96365; 99284; G0482; J1953; Z7610